=== PATIENT | female | born 1980 | race Caucasian/White ===

== ENCOUNTER 2017-03-27 08:15 | Emergency (ER) | payer MEDICAID ==
[2017-03-27 08:32] VITALS: BP 118/81
[2017-03-27] MEDS ORDERED: Ibuprofen PED LIQ* 100 MG/5 ML UDC PO ONE (09:12)
--- NOTE | 2017-03-27 09:17 | UC ---
Throat Pain/Nasal Amilcar HPI - HPI Summary HPI Summary: 36 YO FEMALE WITH SOME LEARNING DISABILITIES PRESENTS WITH SORE THROAT X 1 DAY FEVER UNABLE TO COOPERATE TO GET AN ADEQUATE SPECIMEN TO TEST STATES IT HURTS TO SWALLOW NO RESPIRATORY PROBLEMS - History of Current Complaint Chief Complaint: UCGeneralIllness Stated Complaint: SORE THROAT Time Seen by Provider: 03/27/17 08:36 Hx Obtained From: Patient Hx Last Menstrual Period: 03/14/17 Onset/Duration: Gradual Onset, Lasting Hours Severity: Moderate Pain Intensity: 6 Pain Scale Used: 0-10 Numeric - Epiglottits Risk Factors Epiglottis Risk Factors: Negative - Allergies/Home Medications Allergies/Adverse Reactions: Allergies Allergy/AdvReac Type Severity Reaction Status Date / Time No Known Allergies Allergy Verified 03/27/17 08:32 PMH/Surg Hx/FS Hx/Imm Hx Previously Healthy: Yes - Surgical History Surgical History: None - Family History Known Family History: Positive: Hypertension - Social History Alcohol Use: None Substance Use Type: None Smoking Status (MU): Never Smoked Tobacco - Immunization History Most Recent Influenza Vaccination: NOT CURRENT Review of Systems Constitutional: Fever Skin: Negative Eyes: Negative ENT: Sore Throat Respiratory: Negative Cardiovascular: Negative Gastrointestinal: Negative Genitourinary: Negative Motor: Negative Neurovascular: Negative Musculoskeletal: Negative Neurological: Negative Psychological: Negative Is Patient Immunocompromised?: No All Other Systems Reviewed And Are Negative: Yes Physical Exam Triage Information Reviewed: Yes Appearance: Well-Appearing, No Pain Distress, Well-Nourished Vital Signs: Initial Vital Signs Temp 100.0 F 03/27/17 08:27 Pulse 100 03/27/17 08:27 Resp 18 03/27/17 08:27 BP 118/81 03/27/17 08:27 Pulse Ox 100 03/27/17 08:27 Eyes: Positive: Conjunctiva Clear ENT: Positive: Hearing grossly normal, Pharyngeal erythema, TMs normal, Uvula midline. Negative: Nasal congestion, Nasal drainage, Tonsillar swelling, Tonsillar exudate, Trismus, Muffled voice, Hoarse voice, Dental tenderness, Sinus tenderness Neck: Positive: Supple, Nontender, Enlarged Nodes @ - ANTERIOR CERVICAL Respiratory: Positive: Lungs clear, Normal breath sounds, No respiratory distress Cardiovascular: Positive: RRR, No Murmur Musculoskeletal: Positive: ROM Intact, No Edema Neurological: Positive: Alert Psychological Exam: Normal Skin Exam: Normal Diagnostics - Laboratory Diagnostic Studies Completed/Ordered: strep (-) but unsure if swab was adequate Throat Pain/Nasal Course/Dx - Differential Dx/Diagnosis Provider Diagnoses: acute pharyngitis Discharge - Discharge Plan Condition: Stable Disposition: HOME Prescriptions: Amoxicillin PO (*) [Amoxicillin 400 MG/5 ML SUSP*] 800 mg PO BID #200 bottle Patient Education Materials: Pharyngitis (ED) Referrals: No Primary Care Phys,NOPCP [Primary Care Provider] - Additional Instructions: RECHECK IN 2-3 DAYS IF NOT BETTER HERE OR WITH YOUR PROVIDER RECHECK FOR NEW OR WORSENING SYMPTOMS
== END 2017-03-27 09:21 | disposition home or self-care (01) ==
LOC: UCCORT 08:15
DX: J02.9 Acute pharyngitis, unspecified (principal)
CPT/HCPCS: 87651; 99202; G0463